=== PATIENT | female | born 1950 | race Two or more races ===

== ENCOUNTER 2019-06-25 14:51 | Outpatient (CLI) | payer OTHER ==
[~2019-06-25 14:51] MED LIST: ANTIVERT25 M1 PO; ATENOLOL100 MG; LISINOPRIL20 MG; NORVASC2.5 M1
== END 2019-06-25 15:02 | disposition home or self-care (01) ==
LOC: MAMO-SONO 14:51
DX: N60.41 Mammary duct ectasia of right breast (principal); N60.11 Diffuse cystic mastopathy of right breast; Z12.31 Encounter for screening mammogram for malignant neoplasm of breast; Z87.898 Personal history of other specified conditions; R10.12 Left upper quadrant pain; R10.11 Right upper quadrant pain

== ENCOUNTER 2019-06-25 16:08 | Outpatient (CLI) | payer OTHER | END 2019-06-25 16:14 | disposition home or self-care (01) | LOC: LAB 16:08 | DX: N30.00 Acute cystitis without hematuria (principal); R10.11 Right upper quadrant pain; D50.8 Other iron deficiency anemias ==